=== PATIENT | male | born 1985 | race Caucasian/White ===

== ENCOUNTER 2018-12-15 15:54 | Emergency (ER) | payer MEDICAID, OTHER ==
[~2018-12-15] VITALS: Ht 180.3 cm; Wt 123.2 kg
[2018-12-15 16:02] VITALS: BP 144/87
== END 2018-12-15 16:33 | disposition home or self-care (01) ==
LOC: ER 15:54
DX: S50.812A Abrasion of left forearm, initial encounter (principal); W51.XXXA Accidental striking against or bumped into by another person, initial encounter; Y93.89 Activity, other specified; Y92.238 Other place in hospital as the place of occurrence of the external cause; Y99.0 Civilian activity done for income or pay
CPT/HCPCS: 99281

== ENCOUNTER → 2024-03-07 | Outpatient (CLI) | payer MEDICAID | END | disposition home or self-care (01) | LOC: RAD 09:13 | PROVIDERS: ATTEND Physician Assistant | DX: R07.89 Other chest pain (principal); M25.521 Pain in right elbow | CPT/HCPCS: 71046; 73080 ==